=== PATIENT | female | born 1995 | race Two or more races ===

== ENCOUNTER 2024-06-22 01:08 | Emergency (ER) | payer MEDICAID, OTHER ==
[~2024-06-22] VITALS: Ht 157.5 cm; Wt 100.0 kg
--- NOTE | 2024-06-22 01:45 | ED.PDOC ---
HPI Comments PT PRESENTED TO ED AFTER GETTING HER FINGERS CAUGHT IN A MIXER. ON ASSESSMENT PTS 2ND AND 3RD DIGITS HAVE LACERATIONS TO EACH. PT DENIES AN LOSS OF FEELING, NO DISCOLORATION, BLEEDING CONTROLLED. PT A&OX4, VSS, RR EVEN AND UNLABORED ON RA. Chief Complaint: Laceration Time Seen by MD: 01:14 Reviewed Notes: Nurses Notes, Medications, Allergies Allergies: Coded Allergies: NO KNOWN ALLERGIES (Unverified , 06/22/24) Home Meds Active Scripts Ibuprofen (Ibuprofen) 800 Mg Tab, 800 MG PO Q8HP PRN for 6 Days, #18 TAB Prov:MARLYN SANCHEZ PENCIL INSPECTOR 06/22/24 Ciprofloxacin Hcl (Cipro) 500 Mg Tab, 500 MG PO BID for 10 Days, #20 TAB Prov:MARLYN SANCHEZ PENCIL INSPECTOR 06/22/24 Information Source: Patient Mode of Arrival: Ambulatory Complexity: Complex Laceration Length (cm): 5 Past Medical History PAST MEDICAL HISTORY: Denies Surgical History: Denies all surgeries LEASE PURCHASE DRIVER History: No Pertinent LEASE PURCHASE DRIVER History Family History Family History: Reviewed,noncontributory to illness, No family hx of Cancer, No family hx of DM, No family hx of Heart hiram, No family hx of HTN, No family hx ofKidney hiram, No family hx of Liver hiram, No family hx of Lung hiram, No family hx of Stroke Social History Smoker: Non-Smoker Alcohol: Denies ETOH Use Drugs: Denies Drug Use Constitutional: denies: chills, diaphoresis, fatigue, fever, malaise, sweats, weakness, others EENTM: denies: blurred vision, double vision, ear bleeding, ear discharge, ear drainage, ear pain, ear ringing, eye pain, eye redness, hearing loss, mouth pain, mouth swelling, nasal discharge, nose bleeding, nose congestion, nose pain, photophobia, tearing, throat pain, throat swelling, voice changes, others Respiratory: denies: cough, hemoptysis, orthopnea, SOB at rest, shortness of breath, SOB with excertion, stridor, wheezing, others Cardiovascular: denies: chest pain, dizzy spells, diaphoresis, Dyspnea on exertion, edema, irregular heart beat, left arm pain, lightheadedness, palpitations, PND, syncope, others Gastrointestinal: denies: abdomen distended, abdominal pain, blood streaked bowels, constipated, diarrhea, dysphagia, difficulty swallowing, hematemesis, melena, nausea, poor appetite, poor fluid intake, rectal bleeding, rectal pain, vomiting, others Genitourinary: denies: abnormal vagina bleeding, burning, dyspareunia, dysuria, flank pain, frequency, hematuria, incontinence, pain, , vagina discharge, urgency, others Neurological: denies: dizziness, fainting, headache, left sided numbness, left sided weakness, numbness, paresthesia, pre-existing deficit, right sided numbness, right sided weakness, seizure, speech problems, tingling, tremors, we akness, others Musculoskeletal: denies: back pain, gout, joint pain, joint swelling, muscle pain, muscle stiffness, neck pain, others Integumetry: reports: laceration (5 CM LACERATION TO RIGHT 2ND DIGIT LATERAL AND MEDIAL ASPECT AVULSION OF CUTICLE AND HALF OF NAIL STRENGTH SENSORY AND MOTION INTACT); denies: bruises, change in color, change in hair/nails, dryness, lesions, lumps, rash, wounds, others Allergic/Immunocompromised: denies: Difficulty Healing, Frequent Infections, Hives, Itching, others Hematologic/Lymphatic: denies: anemia, blood clots, easy bleeding, easy bruising, swollen glands, others Endocrine: denies: excessive hunger, excessive sweating, excessive thirst, excessive urination, flushing, intolerance to cold, intolerance to heat, unexpla ined weight gain, unexplained weight loss, others Psychiatric: denies: anxiety, bipolar disorder, depression, hopeless, panic disorder, schizophrenia, sleepless, suicidal, others Physical Exam General Appearance: No Apparent Distress, Normal HEENT: Normal ENT Inspection, Pharynx Normal, TMs Normal Neck: Full Range of Motion, Non-Tender, Normal, Normal Inspection Respiratory: Chest Non-Tender, Lungs Clear, No Accessory Muscle Use, No Respiratory Distress, Normal Breath Sounds Cardiovascular: No Edema, No JVD, No Murmur, No Gallop, Normal Peripheral Pulses, Regular Rate/Rhythm Breast Exam: Deferred Gastrointestinal: No Organomegaly, Non Tender, No Pulsatile Mass, Normal Bowel Sounds, Soft Genitalia: Deferred Pelvic: Deferred Rectal: Deferred Extremities: No calf tenderness, Normal capillary refill, Normal inspection, Normal range of motion, Non-tender, No pedal edema Musculoskeletal : Apperance: Normal Neurologic: Alert, staff consultant II-XII nml as Tested, No Motor Deficits, Normal Affect, Normal Mood, No Sensory Deficits Cerebellar Function: Normal Reflexes: Normal Skin: Dry, Normal Color, Warm Lymphatic: No Adenopathy Was a procedure done? Was a procedure done?: Yes Sedation Sedation?: No Informed consent obtained: Yes Laceration Repair : Location RIGHT 2ND FINGER DISTAL PHALANX Length 5 CM Anesthetic: Lidocaine, Without epi Laceration Repair Prep: Saline, by Irrigation Laceration Repair Wound Comple: epidermis/dermis repair Laceration Repair: Number of sutures (9), Simple Informed consent obtained: Yes Risks, benefits, and alternati: Yes Notes PATIENT TOLERATED WELL WITH MINIMAL BLOOD LOSS. NAIL HAD TO BE REMOVED CUTICLE AVULSION HALF NAIL AVULSION Differential diagnosis Generic Laceration: Fracture, Tendon Injury, Laceration, Avulsion, Amputation X-Ray, Labs, Meds, VS Vital Signs Date Time Temp Pulse Resp B/P (MAP) Pulse Ox O2 Delivery O2 Flow Rate FiO2 06/22/ 01:29 97.7 66 16 114/60 (78) 98 97.7 X-Ray, Labs, Meds, VS Comment CLINICAL INDICATION: 2nd digit TECHNIQUE: XY R HAND 3 VIEW XRAY Comparison: None FINDINGS/IMPRESSION: : The 2nd digit has bandage/splint material which partially obscures detail. A small cortical fragment is noted along the radial margin of the distal aspect of the 2nd distal phalanx, possibly representing mildly displaced fracture. SEE PROCEDURE NOTE. PATIENT GIVEN CEFTRIAXONE 2 G IM. SCRIPT CIPRO 500 MG TWICE DAILY COVERAGE FOR POSSIBLE OPEN FRACTURE. ADVISED TO TAKE MEDICATIONS PRESCRIBED SIDE EFFECTS DISCUSSED. FOLLOW UP HERE IN 2 DAYS FOR WOUND RE- EVALUATION. ER RETURN PRECAUTIONS GIVEN FOR UNCONTROLLED BLEEDING, OR SIGNS AND SYMPTOMS OF INFECTION. THE PRESSURE DRESSING ON UNTIL FOLLOW UP IN THE ER. PATIENT INDICATES UNDERSTANDING AND AGREES WITH DISCHARGE PLAN OF CARE. Time of 1ST Reevaluation: 01:35 Reevaluation 1ST: Unchanged Time of 2ND Reevaluation: 03:58 Reevaluation 2ND: Improved Patient Education/Counseling: Diagnosis, Treatment, Prognosis, Need For Follow Up Family Education/Counseling: Diagnosis, Treatment, Prognosis, Need For Follow Up Departure 1 Departure Time of Disposition: 03:51 Impression: Primary Impression: Laceration of finger of left hand with damage to nail Qualified Codes: S61.311A - Laceration without foreign body of left index finger with damage to nail, initial encounter Additional Impression: Fracture, finger, distal phalanx Qualified Codes: S62.661B - Nondisplaced fracture of distal phalanx of left index finger, initial encounter for open fracture Disposition: HOME / SELF CARE / HOMELESS Condition: Stable e-Prescriptions Ibuprofen (Ibuprofen) 800 Mg Tab 800 MG PO Q8HP PRN for 6 Days, #18 TAB Prov: MARLYN SANCHEZ 06/22/24 Ciprofloxacin Hcl (Cipro) 500 Mg Tab 500 MG PO BID for 10 Days, #20 TAB Prov: MARLYN SANCHEZ 06/22/24 Discharged With: Self Critical Care Note Critical Care Time?: No Stability Stability form required: MARLYN Dale June 22, 2024 01:45
--- NOTE | 2024-06-22 02:29 | DVH ---
CLINICAL INDICATION: 2nd digit TECHNIQUE: XY R HAND 3 VIEW XRAY Comparison: None FINDINGS/IMPRESSION: : The 2nd digit has bandage/splint material which partially obscures detail. A small cortical fragment is noted along the radial margin of the distal aspect of the 2nd distal phalanx, possibly representin g mildly displaced fracture.
[2024-06-22 03:00] VITALS: RESP 20
[2024-06-22] MEDS ORDERED: ceFAZolin IM 1GM/2.5ML STERILE WATER IM ONE (03:45)
[2024-06-22] MEDS ORDERED: IBUP-1456 PO (03:55)
[2024-06-22] MEDS ORDERED: CIPR-173 PO (03:55)
[2024-06-22] MEDS: LIDOCAINE 1% HCL (LOCAL ANESTH.) INJ 20ML MDV IJ ONE (04:04)
[2024-06-22] MEDS: cefTRIAXone SOD 1,000 MG VL IM ONE ×2 (04:05)
[2024-06-22] MEDS: TETANUS-DIPTH-ACEL PERTUSSIS 0.5ML SYR Tdap IM ONE (04:06)
[2024-06-22 04:21] VITALS: BP 118/70; PULSE 72; RESP 18; TEMP 97.7; O2SAT 99
== END 2024-06-22 04:28 | disposition home or self-care (01) ==
LOC: ER 01:08
DX: S61.311A Laceration without foreign body of left index finger with damage to nail, initial encounter (principal); W31.89XA Contact with other specified machinery, initial encounter; Y93.89 Activity, other specified; Y92.89 Other specified places as the place of occurrence of the external cause; Y99.8 Other external cause status
CPT/HCPCS: 11730; 12002; 73130; 90471; 90715; 96372; 99284; J0690; J0696

== ENCOUNTER 2024-06-24 16:04 | Emergency (ER) | payer MEDICAID ==
[~2024-06-24] VITALS: Ht 167.6 cm; Wt 80.2 kg
[~2024-06-24 16:04] MED LIST: CIPR-173 PO; IBUP-1456 PO
--- NOTE | 2024-06-24 16:51 | ED.PDOC ---
History of Present Illness HPI Comments 28-year-old female with no reported PMHx or PSHx presents with a chief complaint of wound check. Patient states that on Sunday she sliced her right index finger on a handheld associate marketing manager and came into the ER, had her nail removed and had sutures placed. Patient is now presenting wanting to see if the sutures are able to be removed. Patient was informed that the wound needs to heal a little longer and that they can come out in 7-10 days. Patient has not changed her dressing since originally getting it. Chief Complaint: Wound Check Time Seen by MD: 16:43 Reviewed Notes: Medications, Allergies Allergies: Coded Allergies: NO KNOWN ALLERGIES (Unverified , 06/22/24) Home Meds Active Scripts Ibuprofen (Ibuprofen) 800 Mg Tab, 800 MG PO Q8HP PRN for 6 Days, #18 TAB Prov:MARLYN SANCHEZ 06/22/24 Ciprofloxacin Hcl (Cipro) 500 Mg Tab, 500 MG PO BID for 10 Days, #20 TAB Prov:MARLYN SANCHEZ 06/22/24 Information Source: Patient Mode of Arrival: Ambulatory Severity: Moderate Timing: Days Duration: Since onset Prehospital treatment: None Past Medical History PAST MEDICAL HISTORY: Denies Surgical History: Denies all surgeries CARTON MAKER History: No Pertinent CARTON MAKER History Family History Family History: Reviewed,noncontributory to illness, No family hx of Cancer, No family hx of DM, No family hx of Heart hiram, No family hx of HTN, No family hx ofKidney hiram, No family hx of Liver hiram, No family hx of Lung hiram, No family hx of Stroke Social History Smoker: Non-Smoker Alcohol: Denies ETOH Use Drugs: Denies Drug Use Constitutional: denies: chills, diaphoresis, fatigue, fever, malaise, sweats, weakness, others EENTM: denies: blurred vision, double vision, ear bleeding, ear discharge, ear drainage, ear pain, ear ringing, eye pain, eye redness, hearing loss, mouth pain, mouth swelling, nasal discharge, nose bleeding, nose congestion, nose pain, photophobia, tearing, throat pain, throat swelling, voice changes, others Respiratory: denies: cough, hemoptysis, orthopnea, SOB at rest, shortness of breath, SOB with excertion, stridor, wheezing, others Cardiovascular: denies: chest pain, dizzy spells, diaphoresis, Dyspnea on exertion, edema, irregular heart beat, left arm pain, lightheadedness, palpitations, PND, syncope, others Gastrointestinal: denies: abdomen distended, abdominal pain, blood streaked bowels, constipated, diarrhea, dysphagia, difficulty swallowing, hematemesis, melena, nausea, poor appetite, poor fluid intake, rectal bleeding, rectal pain, vomiting, others Genitourinary: denies: abnormal vagina bleeding, burning, dyspareunia, dysuria, flank pain, frequency, hematuria, incontinence, pain, , vagina discharge, urgency, others Neurological: denies: dizziness, fainting, headache, left sided numbness, left sided weakness, numbness, paresthesia, pre-existing deficit, right sided numbness, right sided weakness, seizure, speech problems, tingling, tremors, weakness, others Musculoskeletal: denies: back pain, gout, joint pain, joint swelling, muscle pain, muscle stiffness, neck pain, others Integumetry: reports: wounds; denies: bruises, change in color, change in hair/nails, dryness, laceration, lesions, lumps, rash, others Allergic/Immunocompromised: denies: Difficulty Healing, Frequent Infections, Hives, Itching, others Hematologic/Lymphatic: denies: anemia, blood clots, easy bleeding, easy bruising, swollen glands, others Endocrine: denies: excessive hunger, excessive sweating, excessive thirst, excessive urination, flushing, intolerance to cold, intolerance to heat, unexplained weight gain, unexplained weight loss, others Psychiatric: denies: anxiety, bipolar disorder, depression, hopeless, panic disorder, schizophrenia, sleepless, suicidal, others All Other Systems: Reviewed and Negative Physical Exam General Appearance: No Apparent Distress, Normal HEENT: Normal ENT Inspection, Pharynx Normal, TMs Normal Neck: Full Range of Motion, Non-Tender, Normal, Normal Inspection Respiratory: Chest Non-Tender, Lungs Clear, No Accessory Muscle Use, No Respiratory Distress, Normal Breath Sounds Cardiovascular: No Edema, No JVD, No Murmur, No Gallop, Normal Peripheral Pulses, Regular Rate/Rhythm Breast Exam: Deferred Gastrointestinal: No Organomegaly, Non Tender, No Pulsatile Mass, Normal Bowel Sounds, Soft Genitalia: Deferred Pelvic: Deferred Rectal: Deferred Extremities: No calf tenderness, Normal capillary refill, Normal inspection, Normal range of motion, Non-tender, No pedal edema Musculoskeletal : Apperance: Normal Neurologic: Alert, hospice care transitions coordinator II-XII nml as Tested, No Motor Deficits, Normal Affect, Normal Mood, No Sensory Deficits Cerebellar Function: Normal Reflexes: Normal Skin: Dry, Normal Color, Warm, Wounds (WOUND TO RIGHT INDEX FINGER, DRESSED WITH XEROFORM, SUTURES IN PLACE FROM PREVIOUS VISIT. ) Lymphatic: No Adenopathy Was a procedure done? Was a procedure done?: No Differential Dx Considerations may include: CELLULITIS, ABSCESS, FRACTURE, X-Ray, Labs, Meds, VS Comment IMAGING: X-RAYS AND CT SCANS WERE REVIEWED AND INTERPRETED BY THIS PROVIDER, IMAGING SHOWS NO FRACTURES AND NO PATHOLOGICAL DISEASE. PENDING RADIOLOGY REVIEW. LABORATORY: LABS REVIEWED AND INTERPRETED BY THIS PROVIDER. NO SIGNIFICANT ABNORMALITIES NOTED. PATIENT HAS PRIOR MEDICAL VISITS REVIEWED. MED RECONCILIATION PERFORMED VITAL SIGNS REVIEWED Time of 1ST Reevaluation: 17:14 Reevaluation 1ST: Unchanged Patient Education/Counseling: Diagnosis, Treatment, Need For Follow Up (FOLLOW UP IN SEVEN DAYS FOR SUTURE REMOVAL) Family Education/Counseling: No Family Present Departure 1 Departure Time of Disposition: 16:53 Impression: Primary Impression: Laceration of finger of left hand with damage to nail Qualified Codes: S61.311D - Laceration without foreign body of left index finger with damage to nail, subsequent encounter Additional Impression: Fracture, finger, distal phalanx Qualified Codes: S62.660D - Nondisplaced fracture of distal phalanx of right index finger, subsequent encounter for fracture with routine healing Disposition: 01 HOME / SELF CARE / HOMELESS Condition: Fair Discharged With: Self Critical Care Note Critical Care Time?: No Stability Stability form required: No Heart Score Heart Score: Heart Score Response (Comments) Value History N/A 0 EKG N/A 0 Age N/A 0 Risk Factors N/A 0 Troponin N/A 0 Total 0 I personally scribed for CHECO ZHAO ([email or web address]) on 06/24/24 at 16:51. Electronically submitted by Matias Carrizales ([email or web address]). CHECO ZHAO June 24, 2024 16:51
[2024-06-24 16:54] VITALS: BP 139/76; PULSE 64; RESP 13; TEMP 99; O2SAT 97
== END 2024-06-24 18:27 | disposition home or self-care (01) ==
LOC: ER 16:04
DX: S62.660D Nondisplaced fracture of distal phalanx of right index finger, subsequent encounter for fracture with routine healing (principal); S61.311D Laceration without foreign body of left index finger with damage to nail, subsequent encounter; X58.XXXD Exposure to other specified factors, subsequent encounter

== ENCOUNTER 2024-07-07 19:06 | Emergency (ER) | payer MEDICAID ==
[~2024-07-07] VITALS: Ht 157.5 cm; Wt 100.7 kg
[2024-07-07 20:19] VITALS: BP 129/88; PULSE 93; RESP 16; TEMP 98.2; O2SAT 99
--- NOTE | 2024-07-07 20:23 | ED.PDOC ---
History of Present Illness(SKN HPI Comments 28 year old female presents to ER with complaints of suture removal. Patient states sustained a laceration/fracture to right 2nd finger and had 9 stitches placed in ER here on a 06/22/24 and presents to ER for suture removal. Reports the wound appeared to heal well without any complication. States she was never provided a finger splint to right 2nd finger and notes she never followed-up as instructed with regards to her finger fracture. Denies fever, drainage, numbness/tingling or any further symptoms/complaints Chief Complaint: Suture Removal Time Seen by MD: 19:21 Primary Care Provider: SARAH History of Present Illness: Nurses Notes, Medications, Allergies Allergies: Coded Allergies: NO KNOWN ALLERGIES (Unverified , 06/22/24) Home Meds Active Scripts Clindamycin Hcl (Clindamycin Hcl) 300 Mg Cap, 1 CAP PO TID for 7 Days, #21 CAP 0 Refills Prov:ALISON HASSAN 07/07/24 Discontinued Scripts Ciprofloxacin Hcl (Cipro) 500 Mg Tab, 500 MG PO BID for 10 Days, #20 TAB Prov:MARLYN SANCHEZ 06/22/24 Information Source: Patient Mode of Arrival: Ambulatory Tetanus: UTD Past Medical History PAST MEDICAL HISTORY: Denies Surgical History: Denies all surgeries CORE INSPECTOR History: No Pertinent CORE INSPECTOR History Family History Family History: Unknown Social History Smoker: Non-Smoker Alcohol: Denies ETOH Use Drugs: Denies Drug Use Lives In: Home Constitutional: denies: chills, diaphoresis, fatigue, fever, malaise, sweats, weakness, others EENTM: denies: blurred vision, double vision, ear bleeding, ear discharge, ear drainage, ear pain, ear ringing, eye pain, eye redness, hearing loss, mouth pain, mouth swelling, nasal discharge, nose bleeding, nose congestion, nose pain, photophobia, tearing, throat pain, throat swelling, voice changes, others Respiratory: denies: cough, hemoptysis, orthopnea, SOB at rest, shortness of breath, SOB with excertion, stridor, wheezing, others Cardiovascular: denies: chest pain, dizzy spells, diaphoresis, Dyspnea on exer tion, edema, irregular heart beat, left arm pain, lightheadedness, palpitations, PND, syncope, others Gastrointestinal: denies: abdomen distended, abdominal pain, blood streaked bowels, constipated, diarrhea, dysphagia, difficulty swallowing, hematemesis, melena, nausea, poor appetite, poor fluid intake, rectal bleeding, rectal pain, vomiting, others Genitourinary: denies: abnormal vagina bleeding, burning, dyspareunia, dysuria, flank pain, frequency, hematuria, incontinence, pain, , vagina discharge, urgency, others Neurological: denies: dizziness, fainting, headache, left sided numbness, left sided weakness, numbness, paresthesia, pre-existing deficit, right sided numbness, right sided weakness, seizure, speech problems, tingling, tremors, weakness, others Musculoskeletal: denies: back pain, gout, joint pain, joint swelling, muscle pain, muscle stiffness, neck pain, others Integumetry: reports: others (As stated in HPI) Allergic/Immunocompromised: denies: Difficulty Healing, Frequent Infections, Hives, Itching, others Hematologic/Lymphatic: denies: anemia, blood clots, easy bleeding, easy bruising, swollen glands, others Endocrine: denies: excessive hunger, excessive sweating, excessive thirst, excessive urination, flushing, intolerance to cold, intolerance to heat, unexplained weight gain, unexplained weight loss, others Psychiatric: denies: anxiety, bipolar disorder, depression, hopeless, panic disorder, schizophrenia, sleepless, suicidal, others Physical Exam General Appearance: No Apparent Distress HEENT: PERRL/EOMI Neck: Full Range of Motion, Non-Tender, Normal Respiratory: Chest Non-Tender, Lungs Clear, No Accessory Muscle Use, No Respiratory Distress, Normal Breath Sounds Cardiovascular: No Murmur, No Gallop, Regular Rate/Rhythm Breast Exam: Deferred Gastrointestinal: NOT DONE Genitalia: Deferred Pelvic: Deferred Rectal: Deferred Extremities: Normal capillary refill, Normal range of motion Neurologic: Alert, ampoule washing machine operator II-XII nml as Tested, No Motor Deficits, Normal Affect, Normal Mood, No Sensory Deficits Cerebellar Function: Normal Reflexes: Normal Skin: Dry, Warm, Other (9 stitches in placed to healed wound of distal tuft of right 2nd finger with minimal erythema noted surrounding wound edges and absent nail appreciated. No drainage noted. Patient able to fully move all fingers of right hand. Pulses intact) Peripheral Pulses: 2+ Radial (R), 2+ Radial (L), 2+ Brachial (R), 2+ Brachial (L) Lymphatic: No Adenopathy Was a procedure done? Was a procedure done?: No Sedation Sedation?: No Differential Diagnosis (INTG) Differential Diagnosis: Abrasion Differential Diagnosis: Abscess Differential Diagnosis: Open Fracture, Retained Foreign Body X-Ray, Labs, Meds, VS Vital Signs Date Time Temp Pulse Resp B/P (MAP) Pulse Ox O2 Delivery O2 Flow Rate FiO2 07/07/24 20:19 Room Air* 0 21 07/07/24 20:19 98.2 93 16 129/88 (102) 99 98.2 07/07/24 19:24 98.2 93 16 129/88 (102) 99 98.2 All sutures removed at bedside without complication Finger splint applied Patient neurovascularly intact Previous chart visits reviewed Advised to follow up with PCP and orthopedic hand specialist in 1-2 days Patient verbalized understanding and agreeable with current plan of care Advised to return to ER immediately if symptoms worsen Time of 1ST Reevaluation: 20:12 Reevaluation 1ST: N/A Patient Education/Counseling: Diagnosis, Treatment, Prognosis, Need For Follow Up Family Education/Counseling: No Family Present Departure 1 Departure Time of Disposition: 20:32 Impression: Primary Impression: Laceration of finger of right hand with damage to nail Qualified Codes: S61.310D - Laceration without foreign body of right index finger with damage to nail, subsequent encounter Additional Impressions: Fracture, finger, distal phalanx Qualified Codes: S62.660D - Nondisplaced fracture of distal phalanx of right index finger, subsequent encounter for fracture with routine healing Encounter for removal of sutures Disposition: 01 HOME / SELF CARE / HOMELESS Condition: Stable e-Prescriptions Clindamycin Hcl (Clindamycin Hcl) 300 Mg Cap 1 CAP PO TID for 7 Days, #21 CAP 0 Refills Prov: ALISON HASSAN 07/07/24 Discharged With: Self Critical Care Note Critical Care Time?: No Stability Stability form required: No Heart Score Heart Score: Heart Score Response (Comments) Value History N/A 0 EKG N/A 0 Age N/A 0 Risk Factors N/A 0 Troponin N/A 0 Total 0 ALISON HASSAN July 07, 2024 20:23
[2024-07-07] MEDS ORDERED: CLIN1CAP70 PO (20:40)
== END 2024-07-07 20:44 | disposition home or self-care (01) ==
LOC: ER 19:09
DX: S62.630D Displaced fracture of distal phalanx of right index finger, subsequent encounter for fracture with routine healing (principal); Z79.899 Other long term (current) drug therapy; X58.XXXD Exposure to other specified factors, subsequent encounter
CPT/HCPCS: 29130